=== PATIENT | male | born 1960 | race African-American/Black ===

== ENCOUNTER 2024-05-15 09:11 | Day surgery (SDC) | payer MEDICARE, OTHER ==
[~2024-05-15] VITALS: Ht 182.9 cm; Wt 138.3 kg
[2024-05-15] MEDS ORDERED: LIDOCAINE 2% 100 MG/5 ML UJET TP ONE (10:52)
[2024-05-15] MEDS ORDERED: fentaNYL citrate 0.05 MG/ML VIAL ONE (10:52)
[2024-05-15] MEDS: fentaNYL citrate 0.05 MG/ML VIAL IVP ONE (11:05)
[2024-05-15] MEDS ORDERED: fentaNYL citrate 0.05 MG/ML VIAL IVP ONE (11:30)
== END 2024-05-15 12:05 | disposition home or self-care (01) ==
LOC: MDS 09:11 → MMU 09:12 → MDS 12:01
PROVIDERS: ATTEND Internal Medicine Gastroenterology
DX: R19.5 Other fecal abnormalities (principal); K63.5 Polyp of colon; I10 Essential (primary) hypertension; E11.9 Type 2 diabetes mellitus without complications; J45.909 Unspecified asthma, uncomplicated; Z79.899 Other long term (current) drug therapy; Z98.890 Other specified postprocedural states
CPT/HCPCS: 45385; 82948; J3010